=== PATIENT | female | born 1965 | race Two or more races ===

== ENCOUNTER 2019-10-24 12:02 | Day surgery (SDC) | payer OTHER | END 2019-10-24 15:28 | disposition home or self-care (01) | LOC: AMB-ENDOS 12:02 | PROVIDERS: ATTEND Surgery | DX: K62.89 Other specified diseases of anus and rectum (principal); Z20.828 Contact with and (suspected) exposure to other viral communicable diseases ==

== ENCOUNTER 2019-11-07 11:02 | Inpatient (IN) | payer OTHER ==
[~2019-11-07] VITALS: Ht 157.5 cm; Wt 66.2 kg
== END 2019-11-30 14:14 | disposition home or self-care (01) | DRG 376 ==
LOC: SURH 11-29 06:20 → O/R 11-29 06:20 → SURH 11-29 07:00
PROVIDERS: ADMIT Surgery; ATTEND Surgery
PROC: 0DBP8ZZ Excision of Rectum, Via Natural or Artificial Opening Endoscopic (ICD-10-PCS; principal; 2019-11-29 07:00)
DX: C20 Malignant neoplasm of rectum (principal)

== ENCOUNTER 2020-05-11 08:33 | Day surgery (SDC) | payer OTHER | END 2020-05-11 14:40 | disposition home or self-care (01) | LOC: AMB-ENDOS 08:33 | PROVIDERS: ATTEND Surgery | DX: D12.8 Benign neoplasm of rectum (principal); Z20.822 Contact with and (suspected) exposure to COVID-19 ==

== ENCOUNTER 2021-03-29 07:10 | Day surgery (SDC) | payer OTHER | END 2021-03-29 11:30 | disposition home or self-care (01) | LOC: AMB-ENDOS 07:10 | PROVIDERS: ATTEND Surgery | DX: K62.89 Other specified diseases of anus and rectum (principal); Z20.822 Contact with and (suspected) exposure to COVID-19 ==

== ENCOUNTER 2021-07-16 07:04 | Day surgery (SDC) | payer OTHER ==
[~2021-07-16 07:04] MED LIST: LEVOTHYROXINE25 MCG PO
[2021-07-16] MEDS ORDERED: ULTRACET PO (10:36)
== END 2021-07-16 13:20 | disposition home or self-care (01) ==
LOC: CIR.AMB 07:04
PROVIDERS: ATTEND Surgery
DX: C20 Malignant neoplasm of rectum (principal); K62.5 Hemorrhage of anus and rectum; Z20.822 Contact with and (suspected) exposure to COVID-19; E03.9 Hypothyroidism, unspecified
CPT/HCPCS: 36561; C1788

== ENCOUNTER 2022-02-10 10:15 | Inpatient (IN) | payer OTHER ==
[~2022-02-10] VITALS: Ht 157.5 cm; Wt 68.9 kg
[~2022-02-10 10:15] MED LIST changes: +ULTRACET PO
== END 2022-02-23 20:58 | disposition home or self-care (01) | DRG 331 ==
LOC: O/R 02-15 05:50 → SURG 02-15 10:15
PROVIDERS: ADMIT Surgery; ATTEND Surgery
PROC: 0DTP4ZZ Resection of Rectum, Percutaneous Endoscopic Approach (ICD-10-PCS; 2022-02-15)
PROC: 07BC4ZZ Excision of Pelvis Lymphatic, Percutaneous Endoscopic Approach (ICD-10-PCS; 2022-02-15)
PROC: 0D1B4Z4 Bypass Ileum to Cutaneous, Percutaneous Endoscopic Approach (ICD-10-PCS; principal; 2022-02-15 14:30)
PROC: 3E0336Z Introduction of Nutritional Substance into Peripheral Vein, Percutaneous Approach (ICD-10-PCS; 2022-02-21)
DX: C19 Malignant neoplasm of rectosigmoid junction (principal); Z20.822 Contact with and (suspected) exposure to COVID-19; K21.9 Gastro-esophageal reflux disease without esophagitis

== ENCOUNTER 2022-05-23 09:26 | Inpatient (IN) | payer OTHER ==
[~2022-05-23] VITALS: Ht 157.5 cm; Wt 59.0 kg
[2022-05-27] MEDS ORDERED: PANTOPRAZOLE SO40 MG (08:05)
[2022-05-27] MEDS ORDERED: SUCRALFATE1 GM (08:05)
[2022-05-29] MEDS ORDERED: HYOSCYAMINE0.125 M1 SL (13:23)
[2022-05-29] MEDS ORDERED: OXYCODONE HCL5 MG PO (13:23)
== END 2022-05-29 15:02 | disposition home or self-care (01) | DRG 330 ==
LOC: O/R 05-27 07:53 → SURG 05-27 11:00 → SURH 05-27 13:56
PROVIDERS: ADMIT Surgery; ATTEND Surgery
PROC: 3E0F7SF Introduction of Other Gas into Respiratory Tract, Via Natural or Artificial Opening (ICD-10-PCS; 2022-05-27)
PROC: 0DQB4ZZ Repair Ileum, Percutaneous Endoscopic Approach (ICD-10-PCS; principal; 2022-05-27 11:00)
DX: Z43.2 Encounter for attention to ileostomy (principal); C20 Malignant neoplasm of rectum; K62.5 Hemorrhage of anus and rectum; K66.0 Peritoneal adhesions (postprocedural) (postinfection); E03.9 Hypothyroidism, unspecified

== ENCOUNTER 2022-05-23 16:04 | Outpatient (CLI) | payer OTHER | END 2022-05-23 16:21 | disposition home or self-care (01) | LOC: RAD 16:04 | PROVIDERS: ATTEND Surgery | DX: C20 Malignant neoplasm of rectum (principal); R59.0 Localized enlarged lymph nodes; D37.5 Neoplasm of uncertain behavior of rectum; K62.5 Hemorrhage of anus and rectum ==